=== PATIENT | female | born 1955 | race Caucasian/White ===

== ENCOUNTER → 2021-05-10 | Outpatient (CLI) | payer BC | LOC: HEART 5 15:04 | DX: R06.02 Shortness of breath (principal) | CPT/HCPCS: 71046; 94060; 94729 ==

== ENCOUNTER → 2021-05-28 | Outpatient (CLI) | payer BC | LOC: CT 14:00 | DX: J84.112 Idiopathic pulmonary fibrosis (principal) | CPT/HCPCS: 71250 ==